=== PATIENT | female | born 1960 | race Caucasian/White ===

== ENCOUNTER 2016-06-18 08:56 | Outpatient (CLI) ==
--- NOTE | 2016-06-18 10:45 | MAMMO ---
EXAM: Digital screening mammogram HISTORY: Screening mammogram COMPARISON: none FINDINGS: Bilateral CC and MLO views of the breasts were performed digitally and demonstrate scatte red fibroglandular breast density (25 - 50%). Benign left breast calcification is present. There is no abnormal nodule or calcification. IMPRESSION: No suspicious nodule or calcification is identified RECOMMENDATION: Annual screening mammogram BIRADS category II: Benign findings
== END 2016-06-18 08:57 | disposition home or self-care (01) ==
LOC: RAD 08:56
PROVIDERS: ATTEND Physician Assistant
DX: Z12.31 Encounter for screening mammogram for malignant neoplasm of breast (principal)

== ENCOUNTER 2016-08-27 09:50 | Outpatient (CLI) ==
--- NOTE | 2016-08-27 11:47 | DI ---
EXAM: Radiographs, lumbar spine HISTORY: Low back pain. COMPARISON: None available. TECHNIQUE: Five views. FINDINGS: Curvature and alignment are normal. Prevertebral body heights are maintained. Disc heig hts are normal. Mild multilevel endplate osteophyte formation and facet arthropathy noted. No frac ture or subluxation identified. Atherosclerotic calcifications noted. Phleboliths seen in the pelv is. Embarrass present in the pelvis.. IMPRESSION: Mild multilevel degenerative changes.
== END 2016-08-27 09:51 | disposition home or self-care (01) ==
LOC: RAD 09:50
PROVIDERS: ATTEND Physician Assistant
DX: M54.5 Low back pain (principal)

== ENCOUNTER 2017-06-25 08:53 | Outpatient (CLI) ==
--- NOTE | 2017-06-25 12:28 | MRI ---
EXAM: MRI brain without and with IV contrast. DATE: 25 June 2017. HISTORY: Tender mastoid region. Right ear pain x2 months. TECHNIQUE: Sagittal T1W pre and post contrast the of, axial T2W, axial FLAIR, axial T1W pre and post contrast, and axial DWI sequences brain were obtained using 1.2 Karen magnet. Additional coronal and axial T1W sequences before and after IV contrast, and axial T2W thin-slice images through the brains tem and IACs were obtained. CONTRAST: Omniscan - 17 ml IV. COMPARISON: None. FINDINGS: The left lateral ventricle anterior horn/body is slightly larger than the right, and may b e normal variation. CSF spaces overlying the superior aspect of the frontal and parietal lobes are m ildly prominent, and there is slight prominence of some of the adjacent sulci. No midline shift or h erniation is apparent. No acute infarct, hemorrhage or enhancing intra-axial neoplasm is visible. N o abnormal enhancement is seen in the brain, meninges, or dura. Minimal IR hyperintensity is noted i n the white matter abutting the anterior horn/body of each lateral ventricle. A few 1-3 mm, T2W/FLAI R bright foci are scattered in the subcortical white matter bilaterally. Prominent Virchow-Suleman spa ce vs old lacunar infarct (5.4 x 7 mm) is revealed at the inferior aspect of the right basal ganglia. The lamar-white matter differentiation is normal. The cerebellopontine angles, brainstem, and visib le cervical spinal cord are normal. There is no cerebellar tonsillar ectopia. The pituitary gland i s normal in size and signal. Corpus callosum is normal in size and configuration. Right vertebral a rtery is dominant. Flow voids are present in the major intracranial arteries and in the dural venous sinuses. No aneurysm, AVM, or dural venous sinus thrombosis is apparent. The optic chiasm, optic t racts, and optic nerves are normal. The orbits are normal. There is no acute sinusitis. No upper neck mass or lymphadenopathy is detected. No calvarial neoplasm or acute fracture is evident. A 5. 5 x 5.7 mm, T1W intermediate signal, non-enhancing focus in the parietal scalp is observed near the m idline superiorly. The 5th cranial nerves are symmetric in size, without abnormal enhancement. Meckel's cave and the ca vernous sinus are normal bilaterally. Each superior cerebellar artery is in close proximity to the s uperior border of the cisternal segment of the respective 5th cranial nerve; however, no definitive t rigeminal nerve displacement or compression is apparent. Thin slice, high-resolution images through the IACs and brainstem reveal no abnormal enhancement or n eoplasm involving the 7th/8th cranial nerve complexes. The cochlea, semicircular canals, and vestibu le are symmetric and normal bilaterally. No abnormal enlargement of the vestibular aqueduct is seen on either side. No definitive mastoid effusion, cholesteatoma or mastoiditis is apparent. No distin ct cranial nerve displacement or compression was demonstrated. IMPRESSIONS: 1. No acute infarct, hemorrhage, intra-axial mass or hydrocephalus. 2. Normal bilateral 7th/8th CN, IACs and temporal bones. 3. Vessels in close proximity to each trigeminal nerve, without definitive vascular sling. 4. Virchow-Suleman space vs old lacunar infarct in the right basal ganglia. 5. Minor cerebral small vessel disease. 6. Mild cerebral involutional change. 7. Benign appearing scalp lesion.
== END 2017-06-25 08:54 | disposition home or self-care (01) ==
LOC: RAD 08:53
PROVIDERS: ATTEND Physician Assistant
DX: H92.09 Otalgia, unspecified ear (principal)

== ENCOUNTER 2017-08-20 10:47 | Outpatient (CLI) ==
--- NOTE | 2017-08-20 14:04 | CT ---
EXAM: CT abdomen pelvis without contrast TECHNIQUE: Helical axial CT of the abdomen and pelvis was performed without contrast with coronal an d sagittal reconstructions. COMPARISON: CT abdomen pelvis from 07/25/2009 HISTORY: Back pain FINDINGS: There is no acute abnormality. Specifically there is no mesenteric inflammation, free air, free fluid or bowel wall thickening or edema or pathologic lymph nodes or obstruction or ileus. The liver, spleen, pancreas,and adrenal glands show no acute abnormality. There is a small splenule n ear the splenic hilum. Lung bases are well-aerated. There is a large hiatal hernia with adjacent pos toperative changes. There has been prior cholecystectomy. There is no biliary or pancreatic ductal di latation. There are no suspicious renal masses or large cysts and no hydronephrosis. There are no kidney stones . Both ureters demonstrate normal course and caliber. There is no filling defect in the urinary blad john. There has been prior hysterectomy. There is a small calcification on the anterior surface of th e right psoas muscle very close to the right ureter which was present previously and is not in the ur eter. The appendix is not identified. There are no inflamed colonic diverticula. There are no abdominal wa ll hernias. There is some calcific atherosclerosis of the aorta. There are no acute osseous abnormali ties. There is some modest degenerative change in the lumbar spine. There is a small bone island in t he left sacrum. IMPRESSION: 1. No acute or focal or lateralizing abnormality. 2. Large hiatal hernia fairly stable. 3. Degenerative changes in the lumbar spine with no acute osseous abnormality. 4. Other miscellaneous findings as detailed above.
== END 2017-08-20 10:48 | disposition home or self-care (01) ==
LOC: RAD 10:47
PROVIDERS: ATTEND Physician Assistant
DX: R35.0 Frequency of micturition (principal); M54.5 Low back pain
CPT/HCPCS: 36415; 80053; 85025

== ENCOUNTER 2017-12-10 08:03 | Outpatient (POV) | END 2017-12-10 17:00 | LOC: OUTPT 08:03 | PROVIDERS: ATTEND Otolaryngology | DX: R42 Dizziness and giddiness (principal) ==

== ENCOUNTER 2018-02-17 08:27 | Outpatient (CLI) | END 2018-02-17 08:28 | disposition home or self-care (01) | LOC: LAB 08:27 | PROVIDERS: ATTEND Physician Assistant | DX: Z01.812 Encounter for preprocedural laboratory examination (principal) | CPT/HCPCS: 87338 ==

== ENCOUNTER 2018-02-25 10:06 | Outpatient (CLI) | END 2018-02-25 10:07 | disposition home or self-care (01) | LOC: CAR 10:06 | PROVIDERS: ATTEND Nurse Practitioner Family | DX: Z01.810 Encounter for preprocedural cardiovascular examination (principal); Z01.812 Encounter for preprocedural laboratory examination; E66.01 Morbid (severe) obesity due to excess calories | CPT/HCPCS: 36415; 80053; 80061; 82306; 82525; 82607; 82728; 83540; 83550; 83735; 83970; 84255; 84425; 84443; 84446; 84590; 84597; 84630; 85025; 93005; 93010 ==

== ENCOUNTER 2018-03-11 14:19 | Outpatient (CLI) | END 2018-03-11 14:20 | disposition home or self-care (01) | LOC: LAB 14:19 | PROVIDERS: ATTEND Physician Assistant | DX: Z01.812 Encounter for preprocedural laboratory examination (principal) | CPT/HCPCS: 36415; 84597 ==

== ENCOUNTER 2018-08-05 12:26 | Outpatient (CLI) ==
--- NOTE | 2018-08-05 13:16 | US ---
EXAM: Bilateral carotid artery Doppler History: Dizziness. Technique: Multiple sonographic images through the bilateral internal carotid arteries were obtained . Color duplex Doppler was used to interrogate vascular flow. Findings: The right ICA peak systolic velocity is within normal limits measuring 72 cm/sec. The right ICA/cca PSV ratio is normal at 0.80. The right vertebral artery is patent and demonstrates antegrade flow. Deleon scale images demonstrate mild plaque buildup within the right internal carotid artery. The left ICA peak systolic velocity is within normal limits measuring 83 cm/sec. The left ICA/cca PS V ratio is normal measuring 0.80. The left vertebral artery is patent and demonstrates antegrade flow . Deleon scale images demonstrate mild plaque buildup within the left internal carotid artery. Impression: No significant hemodynamic stenosis of the bilateral internal carotid arteries.
== END 2018-08-05 12:27 | disposition home or self-care (01) ==
LOC: RAD 12:26
PROVIDERS: ATTEND Physician Assistant
DX: R42 Dizziness and giddiness (principal)

== ENCOUNTER 2018-10-14 09:34 | Outpatient (CLI) ==
--- NOTE | 2018-10-14 09:58 | DI ---
EXAM: KUB. History: Constipation. Findings: Nonspecific bowel gas pattern. A few mildly dilated loops of proximal small bowel. Moder ate colonic stool. No free intraperitoneal air. Postsurgical changes are seen within the abdomen. No acute osseous abnormalities. No suspicious calcifications. Impression: 1. Moderate colonic stool. 2. Nonspecific bowel gas pattern with a few mildly dilated loops of proximal small bowel.
== END 2018-10-14 09:35 | disposition home or self-care (01) ==
LOC: RAD 09:34
PROVIDERS: ATTEND Physician Assistant
DX: K59.00 Constipation, unspecified (principal)

== ENCOUNTER 2019-01-13 10:20 | Outpatient (CLI) | END 2019-01-13 10:21 | disposition home or self-care (01) | LOC: LAB 10:20 | PROVIDERS: ATTEND Nurse Practitioner Family | DX: Z51.81 Encounter for therapeutic drug level monitoring (principal); Z79.899 Other long term (current) drug therapy | CPT/HCPCS: 36415; 80178 ==